=== PATIENT | female | born 1975 | race Caucasian/White ===

== ENCOUNTER 2021-03-10 15:46 | Emergency (ER) | payer MEDICAID ==
[~2021-03-10] VITALS: Ht 167 cm; Wt 74.0 kg
--- NOTE | 2021-03-10 16:36 | ED Abdominal Pain ---
General Chief Complaint: Abdominal/GI Problems Stated Complaint: ABD PAIN,NAUSEA Source of Information: Patient Exam Limitations: No Limitations History of Present Illness Date Seen by Provider: Mar 10, 2021 Time Seen by Provider: 16:20 Initial Comments Patient is a 45-year-old female who presents to the emergency department today with a chief complaint of right upper quadrant abdominal pain. Patient states that she has had colicky right upper quadrant abdominal pain off and on for the last 6 months. She has been seen by her primary care provider and had an ultrasound of her gallbladder. She is scheduled to have a HIDA scan on March 21. Patient states she has been taking some tramadol for pain. She states anything she eats or drinks causes pain in her right side and up into her shoulder and in her right flank. She denies any fevers, chills. She is chronically nauseated with the pain. She denies black or bloody stools, bloody urine. She denies diarrhea. No burning with urination or abnormal vaginal discharge. She is status post tubal ligation. All other review of systems reviewed and negative except as stated above. Timing/Duration: Constant, Getting Worse Severity/Quality: Cramping Location: RUQ Radiation: Shoulder Associated Symptoms: Nausea/Vomiting Allergies and Home Medications Allergies Coded Allergies: No Known Drug Allergies (Unverified , 03/10/21) Patient Home Medication List Home Medication List Reviewed: Yes Review of Systems Review of Systems Constitutional: see HPI EENTM: No Symptoms Reported Respiratory: No Symptoms Reported Cardiovascular: No Symptoms Reported Gastrointestinal: Abdominal Pain, Nausea, Vomiting Genitourinary: No Symptoms Reported Musculoskeletal: no symptoms reported Skin: no symptoms reported All Other Systems Reviewed Negative Unless Noted: Yes Past Svxtklv-Gndfvr-Qhyulv Hx Patient Social History Alcohol Use: Rarely Uses Smoking Status: Never a Smoker 2nd Hand Smoke Exposure: No Recent Hopitalizations: No Seasonal Allergies Seasonal Allergies: No Past Medical History Surgeries: Yes (HERNIA REPAIR) Appendectomy, Section, Tubal Ligation Respiratory: No Cardiac: No Neurological: No Genitourinary: No Gastrointestinal: No Musculoskeletal: No Endocrine: No HEENT: No Cancer: No Psychosocial: No Integumentary: No Blood Disorders: No Adverse Reaction/Blood Tranf: No Physical Exam Vital Signs Vital Signs - First Documented 03/10/21 16:20 Temp 37.6 Pulse 73 Resp 16 B/P (MAP) 153/93 (113) Pulse Ox 100 O2 Delivery Room Air Capillary Refill : Height/Weight/BMI Height: '" Weight: lbs. oz. kg; BMI Method: General Appearance: WD/WN, no apparent distress HEENT: PERRL/EOMI Respiratory: lungs clear, normal breath sounds, no respiratory distress, no accessory muscle use Cardiovascular: regular rate, rhythm Gastrointestinal: normal bowel sounds, soft, tenderness (Mild tenderness in the right upper quadrant without Gomez sign) Back: normal inspection, CVA tenderness (R) (Mild right-sided CVA tenderness) Neurologic/Psychiatric: alert, normal mood/affect, oriented x 3 Skin: normal color, warm/dry Progress/Results/Core Measures Results/Orders Lab Results Laboratory Tests Test 03/10/21 16:32 03/10/21 16:58 Range/Units White Blood Count 7.7 4.3-11.0 10^3/uL Red Blood Count 4.39 3.80-5.11 10^6/uL Hemoglobin 13.4 11.5-16.0 g/dL Hematocrit 40 35-52 % Mean Corpuscular Volume 91 80-99 fL Mean Corpuscular Hemoglobin 31 25-34 pg Mean Corpuscular Hemoglobin Concent 34 32-36 g/dL Red Cell Distribution Width 12.6 10.0-14.5 % Platelet Count 225 130-400 10^3/uL Mean Platelet Volume 10.4 9.0-12.2 fL Immature Granulocyte % (Auto) 0 % Neutrophils (%) (Auto) 63 42-75 % Lymphocytes (%) (Auto) 27 12-44 % Monocytes (%) (Auto) 8 0-12 % Eosinophils (%) (Auto) 1 0-10 % Basophils (%) (Auto) 0 0-10 % Neutrophils # (Auto) 4.8 1.8-7.8 10^3/uL Lymphocytes # (Auto) 2.1 1.0-4.0 10^3/uL Monocytes # (Auto) 0.6 0.0-1.0 10^3/uL Eosinophils # (Auto) 0.1 0.0-0.3 10^3/uL Basophils # (Auto) 0.0 0.0-0.1 10^3/uL Immature Granulocyte # (Auto) 0.0 0.0-0.1 10^3/uL Sodium Level 141 135-145 MMOL/L Potassium Level 3.8 3.6-5.0 MMOL/L Chloride Level 107 98-107 MMOL/L Carbon Dioxide Level 25 21-32 MMOL/L Anion Gap 9 5-14 MMOL/L Blood Urea Nitrogen 10 7-18 MG/DL Creatinine 0.81 0.60-1.30 MG/DL Estimat Glomerular Filtration Rate > 60 BUN/Creatinine Ratio 12 Glucose Level 91 70-105 MG/DL Calcium Level 9.4 8.5-10.1 MG/DL Corrected Calcium 9.1 8.5-10.1 MG/DL Total Bilirubin 0.9 0.1-1.0 MG/DL Aspartate Amino Transf (AST/SGOT) 16 5-34 U/L Alanine Aminotransferase (ALT/SGPT) 18 0-55 U/L Alkaline Phosphatase 60 40-136 U/L Total Protein 7.6 6.4-8.2 GM/DL Albumin 4.4 3.2-4.5 GM/DL Lipase 20 8-78 U/L Serum Test, Qualitative NEGATIVE NEGATIVE Urine Color DARK YELLOW Urine Clarity CLEAR Urine pH 5.5 5-9 Urine Specific [place] >=1.030 1.016-1.022 Urine Protein NEGATIVE NEGATIVE Urine Glucose (UA) NEGATIVE NEGATIVE Urine Ketones NEGATIVE NEGATIVE Urine Nitrite NEGATIVE NEGATIVE Urine Bilirubin NEGATIVE NEGATIVE Urine Urobilinogen 1.0 < = 1.0 MG/DL Urine Leukocyte Esterase NEGATIVE NEGATIVE Urine RBC (Auto) NEGATIVE NEGATIVE Urine RBC NONE /HPF Urine WBC NONE /HPF Urine Crystals PRESENT H /LPF Urine Amorphous Sediment FEW PUMA URATES H /LPF Urine Bacteria NEGATIVE /HPF Urine Casts NONE /LPF Urine Mucus SMALL H /LPF Urine Culture Indicated NO My Orders Orders - REBEKA VALENTE MD Ed Iv/Invasive Line Start (03/10/21 16:32) Cbc With Automated Diff (03/10/21 16:32) Comprehensive Metabolic Panel (03/10/21 16:32) Lipase (03/10/21 16:32) Hcg,Qualitative Serum (03/10/21 16:32) Ua Culture If Indicated (03/10/21 16:36) Dicyclomine Injection (Bentyl Injection) (03/10/21 16:37) Ondansetron Injection (Zofran Injectio (03/10/21 16:45) Medications Given in ED Current Medications Medications Dose Ordered Sig/Dario Route Start Time Stop Time Status Last Admin Dose Admin Ondansetron HCl 8 mg ONCE ONCE IVP 03/10/21 16:45 03/10/21 16:46 DC 03/10/21 16:45 8 MG Vital Signs/I&O 03/10/21 16:20 Temp 37.6 Pulse 73 Resp 16 B/P (MAP) 153/93 (113) Pulse Ox 100 O2 Delivery Room Air Progress Progress Note : Time: 17:30 Progress Note Patient seen and examined 45-year-old female presents with right upper quadrant and epigastric abdominal pain onset randomly and with food. Evaluation today includes a physical exam, CBC, Chem-12 with lipase, urinalysis and serum test. Patient's laboratory studies are all reviewed and unremarkable. On physical examination the patient has a negative Gomez sign. She has no signs of acute abdomen. After Bentyl and Zofran she states her nausea is much improved and her abdominal pain may be mildly improved. I have discussed pain management with the patient and we will send her home with a few hydrocodone as well as Bentyl and Zofran. She is advised to follow-up with a general surgeon regarding her right upper quadrant abdominal pain. She is also given good return precautions. She verbalized understanding. All questions are sought and answered. Patient is stable for discharge. Departure Impression Primary Impression: Abdominal pain Qualified Codes: R10.11 - Right upper quadrant pain Additional Impression: Biliary colic Disposition: 01 HOME, SELF-CARE Condition: Stable Departure-Patient Inst. Decision time for Depature: 17:29 Referrals: ALTHEA NEAL AMANDA S APRN (PCP) Primary Care Physician Patient Instructions: Abdominal Pain, Adult ED Add. Discharge Instructions: Try and follow a bland diet over the course of the next 10 days. Call and see if you can get your HIDA scan moved up to a sooner date. Take the Bentyl 30 minutes before meals and at bedtime to help with gallbladder spasms and pain. Hydrocodone 5 mg 1 every 6 hours as needed for severe pain. Zofran every 8 hours as needed for nausea and vomiting. Return to the emergency room for any use worsening pain especially with fever vomiting or other emergent concerning symptoms. Scripts Hydrocodone/Acetaminophen (Hydrocodone-Acetamin 5-325 mg) 1 Each Tablet 1 TAB PO Q6H PRN for PAIN-MODERATE (5-7), #15 TAB Prov: REBEKA VALENTE MD 03/10/21 Dicyclomine HCl (Dicyclomine HCl) 20 Mg Tablet 20 MG PO Q6H for abdominal pain, #60 TAB Prov: REBEKA VALENTE MD 03/10/21 Ondansetron (Ondansetron Odt) 8 Mg Tab.rapdis 8 MG PO Q8H for nausea, #20 TAB Prov: REBEKA VALENTE MD 03/10/21 REBEKA VALENTE MD Mar 10, 2021 16:35
[2021-03-10] MEDS ORDERED: DICYCLOMINE 10 MG/ML (BENTYL) 2 ML AMP IM STA (16:37)
[2021-03-10 16:41] LABS: BASOPHILS % (AUTO) 0 % (0-10); EOSINOPHILS # (AUTO) 0.1 10^3/uL (0.0-0.3); EOSINOPHILS % (AUTO) 1 % (0-10); HEMATOCRIT 40 % (35-52); HEMOGLOBIN 13.4 g/dL (11.5-16.0); LYMPHOCYTES # (AUTO) 2.1 10^3/uL (1.0-4.0); LYMPHOCYTES % (AUTO) 27 % (12-44); MEAN CORPUSCULAR HEMOGLOBIN 31 pg (25-34); MEAN CORPUSCULAR HGB CONC 34 g/dL (32-36); MEAN CORPUSCULAR VOLUME 91 fL (80-99); MEAN PLATELET VOLUME 10.4 fL (9.0-12.2); MONOCYTES # (AUTO) 0.6 10^3/uL (0.0-1.0); MONOCYTES % (AUTO) 8 % (0-12); NEUTROPHILS # (AUTO) 4.8 10^3/uL (1.8-7.8); NEUTROPHILS % (AUTO) 63 % (42-75); PLATELET COUNT 225 10^3/uL (130-400); WHITE BLOOD COUNT 7.7 10^3/uL (4.3-11.0)
[2021-03-10] MEDS ORDERED: ONDANSETRON 4 MG/2 ML (SDV) Z0FRAN IVP ONE (16:45)
[2021-03-10 16:47] LABS: ALBUMIN 4.4 GM/DL (3.2-4.5); CHLORIDE 107 MMOL/L (98-107); POTASSIUM 3.8 MMOL/L (3.6-5.0); SODIUM 141 MMOL/L (135-145)
[2021-03-10 16:48] LABS: CALCIUM 9.4 MG/DL (8.5-10.1)
[2021-03-10 16:49] LABS: GLUCOSE 91 MG/DL (70-105)
[2021-03-10 16:50] LABS: TOTAL PROTEIN 7.6 GM/DL (6.4-8.2)
[2021-03-10 16:51] LABS: BILIRUBIN,TOTAL 0.9 MG/DL (0.1-1.0); CARBON DIOXIDE 25 MMOL/L (21-32)
[2021-03-10 16:53] LABS: ALKALINE PHOSPHATASE 60 U/L (40-136); CREATININE SERUM 0.81 MG/DL (0.60-1.30); GFR ESTIMATED > 60
[2021-03-10 16:54] LABS: BUN/CREATININE RATIO 12
[2021-03-10 16:56] LABS: ALANINE AMINOTRANSFERASE 18 U/L (0-55); LIPASE 20 U/L (8-78)
[2021-03-10 17:03] LABS: BILIRUBIN,URINE NEGATIVE (NEGATIVE); CLARITY,URINE CLEAR; COLOR,URINE DARK YELLOW; GLUCOSE, URINE (UA) NEGATIVE (NEGATIVE); KETONES,URINE NEGATIVE (NEGATIVE); LEUKOCYTE ESTERASE ,URINE NEGATIVE (NEGATIVE); NITRITE,URINE NEGATIVE (NEGATIVE); PH,URINE 5.5 (5-9); PROTEIN,URINE NEGATIVE (NEGATIVE)
[2021-03-10 17:13] LABS: BACTERIA,URINE NEGATIVE /HPF
[2021-03-10 17:14] LABS: AMORPHOUS SEDIMENT,UR FEW AMOR URATES /LPF
[2021-03-10] MEDS ORDERED: ONDA8TAB13 PO (17:33)
[2021-03-10] MEDS ORDERED: DICY20TA10 PO (17:33)
[2021-03-10] MEDS ORDERED: ACHD5005 PO (17:33)
[2021-03-10 17:43] VITALS: BP 126/79
== END 2021-03-10 17:43 | disposition home or self-care (01) ==
LOC: EDUNIT# 15:46 → ER 15:48
DX: K80.50 Calculus of bile duct without cholangitis or cholecystitis without obstruction (principal)
CPT/HCPCS: 36415; 80053; 81000; 83690; 84703; 85025

== ENCOUNTER → 2021-03-13 | Outpatient (CLI) | payer MEDICAID ==
[~2021-03-13] MED LIST: ACHD5005 PO; CATHETER FLUSH 10 ML SYR IV PRN; DICY20TA10 PO; ONDA8TAB13 PO
--- NOTE | 2021-03-13 11:08 | Diagnostic Imaging Report ---
Nuclear medicine scan INDICATION: Right upper quadrant pain The study was performed following administration of 5.32 mCi of Choletec. 8 oz of ensure was also used for calculation of ejection fraction. There are no prior studies available for comparison. There is uptake of the radiotracer about the gallbladder before 30 minutes. This weighs against the diagnosis of acute cholecystitis. There is also extension of the radiotracer into the small bowel indicating that the common bile duct is nonobstructive. The ejection fraction is 50% (normal greater than 35%). IMPRESSION: 1. There is no evidence for acute cholecystitis or for obstruction of the common bile duct. 2. The ejection fraction is 50% and within normal limits. Dictated by: Dictated on workstation # [id number]
== END ==
LOC: CARD 08:00
PROVIDERS: ATTEND Nurse Practitioner Family
DX: R10.11 Right upper quadrant pain (principal)
CPT/HCPCS: 78227

== ENCOUNTER 2021-04-14 05:51 | Outpatient (CLI) | payer MEDICAID ==
[~2021-04-14] VITALS: Ht 167.6 cm; Wt 64.6 kg
[~2021-04-14 05:51] MED LIST changes: -CATHETER FLUSH 10 ML SYR IV PRN
[2021-04-16] MEDS ORDERED: TRAM50TA3 PO (09:10)
[2021-04-16] MEDS ORDERED: BUDE10.2 IH (09:10)
[2021-04-16] MEDS ORDERED: MELO15TA39 PO (09:10)
== END 2021-04-16 09:26 | disposition home or self-care (01) ==
LOC: PREOP 05:51
PROVIDERS: ATTEND Surgery
DX: Z01.818 Encounter for other preprocedural examination (principal)

== ENCOUNTER → 2021-04-18 | Outpatient (CLI) | payer MEDICAID ==
[~2021-04-18] MED LIST changes: +BUDE10.2 IH; +MELO15TA39 PO; +TRAM50TA3 PO
== END ==
LOC: LAB FS 11:31
PROVIDERS: ATTEND Surgery
DX: Z01.812 Encounter for preprocedural laboratory examination (principal); Z12.11 Encounter for screening for malignant neoplasm of colon; Z20.822 Contact with and (suspected) exposure to COVID-19; Z85.43 Personal history of malignant neoplasm of ovary
CPT/HCPCS: 87635

== ENCOUNTER 2021-04-21 10:46 | Day surgery (SDC) | payer MEDICAID ==
[~2021-04-21] VITALS: Ht 167.6 cm; Wt 64.6 kg
[2021-04-21] MEDS ORDERED: LACTATED RINGERS 1,000 ML IV ONE (10:51)
[2021-04-21] MEDS ORDERED: LACTATED RINGERS 1,000 ML IV STA (10:53)
[2021-04-21] MEDS ORDERED: HURRICAINE EXT TUBE (BENZOCAINE) XX PRN (11:00)
[2021-04-21] MEDS ORDERED: fentaNYL INJ 100 MCG/2 ML AMP ONE (11:01)
--- NOTE | 2021-04-21 11:20 | Progress Note-Pre Operative ---
Pre-Operative Progress Note H&P Reviewed The H&P was reviewed, patient examined and no changes noted. Time Seen by Provider: 11:19 Date H&P Reviewed: Apr 21, 2021 Time H&P Reviewed: 11: Pre-Operative Diagnosis: Gastritis, Hx of polyp ALTHEA NEAL DO Apr 21, 2021 11:20
[2021-04-21 11:35] VITALS: BP 150/97
[2021-04-21] MEDS ORDERED: PROPOFOL INJECTION 50 ML IV ONE ×2 (12:03→12:47)
[2021-04-21] MEDS ORDERED: MIDAZOLAM 2 MG/2 ML (VERSED) VIAL ONE (12:03)
[2021-04-21 13:08] VITALS: BP 117/56
--- NOTE | 2021-04-21 13:11 | Progress Note-Post Operative ---
Post-Operative Progess Note Surgeon (s)/Tetryl Screen Operator (s) Surgeon ALTHEA NEAL DO Tetryl Screen Operator: Aneudy Sears, CHRISTOS Pre-Operative Diagnosis Gastritis, Hx of polyp Post-Operative Diagnosis Gastritis Hiatal hernia polyp int hemorrhoids Procedure & Operative Findings Date of Procedure 04/21/21 Procedure Performed/Findings EGD with bx Colon with cold bx PROCEDURE NOTE: After informed consent was obtained, the patient was brought to the endoscopy suite, placed in bed in left lateral decubitus position. She was administered IV sedation by the FINAL FINISHER who then monitored vitals the entire time, heart rate, blood pressure and pulse ox and the scope was inserted down the mouth through the esophagus into the stomach. Pushed into the stomach and past the antrum into the duodenum. Duodenum looked mildly inflamed. Pulled back, saw mild gastritis and did a biopsy of antrum, then retroflexed the scope, saw a hiatal hernia, took a picture of this and then pulled the scope into the GE junction, took another picture of the hiatal hernia and then did a biopsy of the GE junction. GE junction appeared normal; no changes from acid reflux. Pushed the scope back into the stomach, suctioned all the air out of the stomach. At this point pulled the scope up the esophagus and out the mouth. Next changed gloves and scopes, went down below and started the colonoscopy. The scope was inserted, pushed all the way to about 150 cm and pushed into the cecum, noted around the appendiceal orifice looked enlarged and decided to do a cold biopsy here and then slowly withdrew the scope insufflating to look circumferentiallly at the saxena starting in the cecum, up the ascending colon to the hepatic flexure, then down the transverse colon to the splenic flexure. Into the descending colon where I saw a small flat polyp and did another cold biosy. Continued down to the sigmoid and then into the rectal vault and retroflexed he scope. Took picture of the internal hemorrhoids. The patient tolerated the procedure. She was recovered in endoscopy suite. Anesthesia Type IV sedation by FINAL FINISHER Estimated Blood Loss Estimated blood loss (mL): scant Specimens/Packing Specimens Removed antral bx body of stomach bx GE jxn bx appy bx desc colon bx ALTHEA NEAL DO Apr 21, 2021 13:11
--- NOTE | 2021-04-21 13:12 | Endoscopy Discharge Instruct ---
Endo Procedure/Findings Findings 1.: Gastritis 2.: Hiatal Hernia 3.: Polyp 4.: Internal Hemorrhoids Discharge Instructions - Activity: You might feel a little sleepy until tomorrow. This is due to the medicine you received to relax you. Until tomorrow, you should: NOT drive a car, operate machinery or power tools. NOT drink any alcoholic beverages. NOT make any important decisions or sign importortant papers. Do not return to work until tomorrow, unless otherwise instructed. Resume previous activities tomorrow. Diet: Start by taking liquids. If you tolerate liquids, advance to solid food. 1.: Colonscopy in 5 years 2.: EGD in 3 years Notify Physician - If you experience excessive bleeding, unusual abdominal pain, fever, or chest pain, contact your doctor immediately. ALTHEA NEAL DO Apr 21, 2021 13:12
[2021-04-21 13:13] VITALS: BP 112/64
[2021-04-21 13:15] VITALS: BP 120/70
--- NOTE | 2021-04-21 13:20 | Anesthesia-General Post-Op ---
MAC Patient Condition Mental Status/LOC: Same as Preop Cardiovascular: Satisfactory Nausea/Vomiting: Absent Respiratory: Satisfactory Pain: Controlled Complications: Absent Post Op Complications Complications None Follow Up Care/Instructions Patient Instructions None needed. Anesthesiology Discharge Order Discharge Order Patient is doing well, no complaints, stable vital signs, no apparent adverse anesthesia problems. No complications reported per nursing. JACK BROTHERS CRNA Apr 21, 2021 13:20
[2021-04-21 13:45] VITALS: BP 127/79
[2021-04-21 14:10] VITALS: BP 127/79
== END 2021-04-21 14:10 | disposition home or self-care (01) ==
LOC: ENDO 10:46
PROVIDERS: ATTEND Surgery
DX: K63.5 Polyp of colon (principal); K52.9 Noninfective gastroenteritis and colitis, unspecified; K44.9 Diaphragmatic hernia without obstruction or gangrene; K64.8 Other hemorrhoids; K29.50 Unspecified chronic gastritis without bleeding; K20.90 Esophagitis, unspecified without bleeding
CPT/HCPCS: 88305

== ENCOUNTER 2021-04-29 05:43 | Outpatient (CLI) | payer MEDICAID ==
[~2021-04-29] VITALS: Ht 167.7 cm; Wt 63.2 kg
== END 2021-04-29 12:54 | disposition home or self-care (01) ==
LOC: PREOP 05:43
PROVIDERS: ATTEND Obstetrics & Gynecology
DX: Z01.818 Encounter for other preprocedural examination (principal)

== ENCOUNTER 2021-05-06 08:13 | Day surgery (SDC) | payer MEDICAID ==
[2021-05-06] VITALS (10 sets, daily range): BP systolic 98–155; BP diastolic 65–94
[~2021-05-06] VITALS: Ht 167 cm; Wt 63.2 kg
--- NOTE | 2021-05-06 08:26 | Progress Note-Pre Operative ---
Pre-Operative Progress Note H&P Reviewed The H&P was reviewed, patient examined and no changes noted. Date Seen by Provider: May 06, 2021 Time Seen by Provider: 08:25 Date H&P Reviewed: May 05, 2021 Time H&P Reviewed: 21:00 Pre-Operative Diagnosis: uterine fibroid, menorrhagia, dysmenorrhea, endometriosis, etc MIKAYLA DEL TORO DO May 06, 2021 08:26
[2021-05-06] MEDS ORDERED: LIDOCAINE/EPI 1%-1:100,000 (XYLOCAINE) 20ML ONE ×2 (08:29→08:57)
[2021-05-06 08:30] LABS: BILIRUBIN,URINE NEGATIVE (NEGATIVE); CLARITY,URINE CLEAR; COLOR,URINE DARK YELLOW; GLUCOSE, URINE (UA) NEGATIVE (NEGATIVE); KETONES,URINE 1+ (NEGATIVE); LEUKOCYTE ESTERASE ,URINE NEGATIVE (NEGATIVE); NITRITE,URINE NEGATIVE (NEGATIVE); PROTEIN,URINE NEGATIVE (NEGATIVE)
[2021-05-06] MEDS ORDERED: ROCURONIUM 10 MG/ML 5 ML SYRINGE IV ONE ×2 (08:30→11:49)
[2021-05-06] MEDS ORDERED: GLYCOPYRROLATE 0.2 MG/ML (ROBINUL) 2 ML VIAL ONE (08:30)
[2021-05-06] MEDS ORDERED: fentaNYL INJ 100 MCG/2 ML AMP ONE ×2 (08:30→12:50)
[2021-05-06] MEDS ORDERED: LIDOCAINE PF 2% 5 ML (XYLOCAINE) VIAL ONE (08:30)
[2021-05-06] MEDS ORDERED: NEOSTIGMINE 3 MG/3 ML VIAL ONE (08:30)
[2021-05-06] MEDS ORDERED: proPOfol 200 MG/20 ML (DIPRIVAN) VIAL IV ONE (08:30)
[2021-05-06] MEDS ORDERED: MIDAZOLAM 2 MG/2 ML (VERSED) VIAL ONE (08:30)
[2021-05-06] MEDS ORDERED: ONDANSETRON 4 MG/2 ML (SDV) Z0FRAN ONE (08:30)
[2021-05-06 08:38] LABS: BACTERIA,URINE NEGATIVE /HPF
[2021-05-06] MEDS: LACTATED RINGERS 1,000 ML IV PRN ×3 (09:00→13:19)
[2021-05-06] MEDS ORDERED: ceFAZolin 2 GM IV Premixed 50 ML ONE (09:07)
[2021-05-06 09:28] LABS: BASOPHILS % (AUTO) 0 % (0-10); EOSINOPHILS # (AUTO) 0.1 10^3/uL (0.0-0.3); EOSINOPHILS % (AUTO) 2 % (0-10); HEMATOCRIT 38 % (35-52); HEMOGLOBIN 12.5 g/dL (11.5-16.0); LYMPHOCYTES # (AUTO) 1.2 10^3/uL (1.0-4.0); LYMPHOCYTES % (AUTO) 23 % (12-44); MEAN CORPUSCULAR HEMOGLOBIN 30 pg (25-34); MEAN CORPUSCULAR HGB CONC 33 g/dL (32-36); MEAN CORPUSCULAR VOLUME 92 fL (80-99); MEAN PLATELET VOLUME 10.3 fL (9.0-12.2); MONOCYTES # (AUTO) 0.4 10^3/uL (0.0-1.0); MONOCYTES % (AUTO) 7 % (0-12); NEUTROPHILS # (AUTO) 3.5 10^3/uL (1.8-7.8); NEUTROPHILS % (AUTO) 68 % (42-75); PLATELET COUNT 215 10^3/uL (130-400); WHITE BLOOD COUNT 5.2 10^3/uL (4.3-11.0)
[2021-05-06] MEDS ORDERED: ceFAZolin 2 GM IV Premixed 50 ML IV ONE (10:15)
[2021-05-06] MEDS ORDERED: SEVOFLURANE (ULTANE) 15 ML INHAL SOLN ONE ×2 (10:32→12:54)
[2021-05-06] MEDS ORDERED: INDIGO CARMINE 8 MG/ML 5 ML AMP ONE (11:23)
[2021-05-06] MEDS ORDERED: FUROSEMIDE 40 MG/4 ML INJ (LASIX) ONE (11:23)
[2021-05-06] MEDS ORDERED: VASOPRESSIN INJECTION 20 UNIT/ML VIAL ONE (11:40)
[2021-05-06] MEDS ORDERED: NS (IVPB) 100 ML ONE (11:40)
[2021-05-06] MEDS ORDERED: METHYLENE BLUE 0.5% (PROVAYBLUE) 50 mg/10 ml vial IV ONE (12:04)
--- NOTE | 2021-05-06 12:49 | Operative Report ---
Operative Report Date of Procedure/Surgery May 06, 2021 Surgeon (s) MIKAYLA DEL TORO DO Spray Machine Tender (s): NA Post-Operative Diagnosis endometriosis extensive adhesions vesicouterine adhesions bladder incidental laceration adenomyosis cervical nabothian cysts and fibroids Procedure Performed RATVH , BSO Extensive lysis of adhesions repair of cystomy Description of Procedure Anesthesia Type: General Estimated blood loss (mL): 300 Specimen(s) collected/removed uterus, bilateral tubes and ovaries Description of the Procedure After informed consent was obtained, patient was taken into the operating room where general anesthetic was found to be adequate. She was prepped and draped in the usual sterile fashion in the dorsal lithotomy position. A Og catheter was placed. A speculum was placed in the vagina. The cervix was visualized and the anterior lip was grasped with a sharp toothed tenaculum. The uterus was sounded and depth was approximately 8 centimeters. I placed the Inge device (8 cm) and a 4.0 cm collar was advanced over the cervix. This was difficult due to the large nabothian cysts and possible fibroid on the cervix. I inserted the Inge without difficulty, inflating the balloon and securing it around the fornix of the cervix. The collar was then secured with sutures at 12 o'clock. Attention was then turned to the patient's abdomen. A supraumbilical incision was made about 8 mm. A Veress needle was inserted and I confirmed intraabdominal placement with a drop in pressure and the saline drop test. The opening pressure was 8 mmHg. I then insufflated the abdomen to a maximum of 15 mmHg with warmed CO2 gas. I placed an additional 8 mm trocar in the left abdo men lateral to the umbilicus approximately 15 cm. The second robotic port was placed about 12 cm lateral to the right placement. This was an 8 mm trocar. These were placed under direct visualization of the laparoscope. 0.50% Marcaine was injected prior to placement of all trocars. When all placements were confirmed, the patient was placed in steep Trendelenburg allowing adequate visualization. The uterus was retroflexed, retroflexed, but stuck anteriorly due to extensive vesicouterine adhesions. The bladder was noted to be very scarred to the lower uterine segment and it was advanced nearly up to the fundus. It was very irregular. There were adhesions of the ovaries to the ovarian fossae bilaterally. The right was completely plastered and the left was moderately adherent. There were also adhesions of the small bowel and omentum to the right pelvic sidewall. The bowel was not adherent, but was pulled up to a kinked position with the adhesions. I then took over the command of the robot utilizing the Synchroseal and monopolar chacha. I took down the adhesions of the ovaries to the uterus but was unable to dissect this out cleanly without excessive bleeding. The ovaries were unable to be salvaged. I determined that, due to endometriosis and adh esions of the ovaries that the ovaries would need to be removed. I grasped the infundibulopelvic ligament with the synchroseal and cauterized and ligated the ligament. I did this bilaterally. Then, I was able to visualize the round ligaments bilaterally and grasped them and cauterized with bipolar cautery and then cut with my chacha. I then moved my dissection to the posterior leaves of the broad ligament. I dissected the posterior leaves of the broad ligament off the uterine arteries skeletonizing them bilaterally. I then took a second clamp with the bipolar cautery and with the chacha, transected the vessels away from the lateral aspect to the cervical stroma. I dissected the anterior peritoneum off the lower uterine segment. I continually pushed the bladder back and I took excessively great care and I was eventually able to dissect the vesicouterine peritoneum off the lower uterine segment. However, there was a defect of the bladder in the midline due to these extensive adhesions. This was repaired prior to the end of the procedure. I then dissected in a V fashion towards the midline between the uterosacral ligaments. This allowed me to skeletonize the uterine vessels bilaterally. The balloon on the INGE was insufflated. This allowed me to see the INGE circumferentially. I then performed a colpotomy anteriorly and then amputate with cervix away from the vaginal fornix. I then continued the colpotomy circumferentially. Once this was performed, the pharmacy innovation assistant removed the uterus, tubes and ovaries through the vagina. She then left the uterus in the vagina to maintain the pneumoperitoneum. I now repaired the bladder laceration with two layers of 3-0 Vicryl. I back filled the bladder with indigo carmine fluid and the patient was also given indigo carmine. There was initially a tiny leak at the apex, which is why the second layer was placed. The Og will be left in place for 7 days following the surgery with a cystogram done prior to removal. I then began closure of the vaginal cuff. The uterus was left in the vagina to maintain pneumoperitoneum. I closed the apices of the vaginal cuff with 2-0 Vicryl V lock sutures with a colposuspension through the uterosacral ligaments. This suspended the apices of the vaginal cuff. I extended this to the midline from both sides and overlapped the V lock sutures in the midline. Excellent closure is noted and hemostasis is achieved. I assured excellent closure of the bladder again with backfilling and then the og was attached to dependent drainage. All the needles were removed from the patient's abdomen. Now, the robotic instruments were removed and the robot was docked back to laparoscopy. The pelvis was irrigated. There was no active bleeding noted. Bilateral ureters were seen the entire time during the surgery and were peristalsing. There was no excessive bleeding noted. The trocars were removed under direct visualization. The laparoscopic sites were visualized and found to be hemostatic. The trocar sites were injected with 0.5% Marcaine. The skin incisions were closed with 4-0 Monocryl in a subcuticular fashion and then with Dermabond. Op sites were placed over the incision sites. The instruments were removed from the vagina and I noted there were some abrasions but these were hemostatic after placement of a figure of 8 stitch. . Sponge, lap, needle and instrument counts correct times two. Patient was awakened and taken to recovery in a stable condition. Findings of the Procedure cervix very bulbous bulbous uterus retroverted, retroflexed fibroids evidence of tubal interruption adhesions of the right abdomen consistent with previous ruptured appendix ovaries scarred to ovarian fossae bilaterally Allergies and Home Medications Allergies Coded Allergies: No Known Drug Allergies (Unverified , 05/06/21) Home Medications Acetaminophen 500 Mg Tablet, 1,000 MG PO Q8HR Prescribed by: MIKAYLA DEL TORO on 05/07/21837 Budesonide/Formoterol Fumarate 10.2 Gm Hfa.aer.ad, 2 PUFF IH BID, (Reported) Last Action: Last Taken Edited Ciprofloxacin HCl 250 Mg Tablet, 250 MG PO DAILY Prescribed by: MIKAYLA DEL TORO on 05/07/21837 Ibuprofen 600 Mg Tablet, 600 MG PO Q6HR do not take meloxicam and ibuprofen together. either or Prescribed by: MIKAYLA DEL TORO on 05/07/21 0838 Meloxicam 15 Mg Tablet, 15 MG PO DAILY, (Reported) Last Action: Last Taken Edited Ondansetron 8 Mg Tab.rapdis, 8 MG PO Q8H Prescribed by: REBEKA VALENTE on 03/10/21 1733 Last Action: Last Taken Edited Oxybutynin Chloride 5 Mg Tablet, 5 MG PO DAILY Prescribed by: MIKAYLA DEL TORO on 05/07/21 0838 Oxycodone Hcl 5 Mg Tab, 5 MG PO Q4H Prescribed by: MIKAYLA DEL TORO on 05/07/21 0842 Oxycodone Hcl 5 Mg Tab, 5 MG PO Q4HR Prescribed by: MIKAYLA DEL TORO on 05/07/21 0936 Tramadol HCl 50 Mg Tablet, 50 MG PO PRN, (Reported) Last Action: Last Taken Edited Patient Home Medication List Home Medication List Reviewed: Yes MIKAYLA DEL TORO DO May 06, 2021 12:49
--- NOTE | 2021-05-06 13:12 | Anesthesia-General Post-Op ---
General Patient Condition Mental Status/LOC: Same as Preop Cardiovascular: Satisfactory Nausea/Vomiting: Absent Respiratory: Satisfactory Pain: Controlled Complications: Absent Post Op Complications Complications None Follow Up Care/Instructions Patient Instructions None needed. Anesthesia/Patient Condition Patient Condition Patient is doing well, no complaints, stable vital signs, no apparent adverse anesthesia problems. No complications reported per nursing. JEFFREY REYES CRNA May 06, 2021 13:12
[2021-05-06] MEDS ORDERED: morphine INJ 10 MG/ML 1ML (SYR OR VIAL) IVP ONE (13:15)
[2021-05-06] MEDS ORDERED: HYDROmorphone 2 MG/ML VIAL (DILAUDID) IV ONE (13:15)
[2021-05-06] MEDS ORDERED: PROMETHAZINE INJ 25 MG/ML (PHENERGAN) AMP IVP ONE (13:15)
[2021-05-06] MEDS ORDERED: MEPERIDINE (DEMEROL) INJ 50 MG/ML IVP ONE (13:15)
[2021-05-06] MEDS: ONDANSETRON 4 MG/2 ML (SDV) Z0FRAN IVP PRN ×2 (14:17→15:19)
[2021-05-06] MEDS ORDERED: morphine INJ 4 MG/ML 1 ML (VIAL/SYRINGE) IV PRN (14:45)
[2021-05-06] MEDS ORDERED: NALOXONE 0.4 MG/ML 1 ML (NARCAN) VIAL IV PRN (14:45)
[2021-05-06] MEDS ORDERED: ONDANSETRON 4 MG (ZOFRAN) ORAL DISSOLVE TAB PO PRN (14:45)
[2021-05-06] MEDS ORDERED: ACETAMINOPHEN 500 MG TAB (TYLENOL) ONE (19:52)
[2021-05-06] MEDS: ACETAMINOPHEN 500 MG TAB (TYLENOL) PO SCH (19:55)
[2021-05-06] MEDS: KETOROLAC 30 MG/ML VIAL IV SCH (19:55)
[2021-05-06] MEDS: LACTATED RINGERS 1,000 ML IV SCH ×2 (20:54→22:45)
[2021-05-07 00:34] VITALS: BP 123/66
[2021-05-07] MEDS: KETOROLAC 30 MG/ML VIAL IV SCH ×2 (03:14→08:58)
[2021-05-07 04:55] VITALS: BP 143/84
[2021-05-07] MEDS: LACTATED RINGERS 1,000 ML IV SCH (05:02)
[2021-05-07] MEDS: ACETAMINOPHEN 500 MG TAB (TYLENOL) PO SCH (05:02)
[2021-05-07 08:00] VITALS: BP 145/80
[2021-05-07] MEDS ORDERED: OXYB5TAB13 PO (08:38)
[2021-05-07] MEDS ORDERED: IBUP-844 PO (08:38)
[2021-05-07] MEDS ORDERED: ACET-93 PO (08:38)
[2021-05-07] MEDS ORDERED: CIPR-226 PO (08:38)
--- NOTE | 2021-05-07 08:41 | Discharge Inst-Women's Service ---
Discharge Inst-Women's Serv Depart Medication/Instructions New, Converted or Re-Newed RX: Transmitted to Pharmacy Instructions nothing in vagina for 8 weeks no lifting over 25 lbs until cleared no driving for 1 week Catheter care will continue x 1 week Final Diagnosis endometriosis chronic pelvic pain bladder adhesions with incidental cystotomy adenomyosis menorrhagia/abnormal uterine bleeding cervical polyp dysmenorrhea Problems Reviewed?: Yes Consults/Follow Up Additional Follow Up: Yes (1 week for incision check and catheter removal (best to do this in the morning0; 8 week pp exam) Activity Driving Instructions: No Driving for 1 Week NO SMOKING: NO SMOKING Nothing Inside Vagina: No Douching, No [place], No Tampons Diet Discharge Diet: No Restrictions Symptoms to Report to : Swelling Increased, Bleeding Excessive, Pain Increased, Fever Over 101 Degrees F, Vaginal Bleeding Increase, Vaginal Discharge Foul For Any Problems or Questions: Contact Your Physician Skin/Wound Care Infection Signs and Symptoms: Increased Redness, Foul Odor of Wound, Increased Drainage, Skin Itchy or Has a Rash, Increased Swelling, Temperature Above 101 F Operative Area Clean and Dry: You May Remove Bandage (in 2-3 days or if soiiled/wet) Stitches/[place]/Dermabond: Dermabond Bathing Instructions: MIKAYLA Sharma DO May 07, 2021 08:41
[2021-05-07] MEDS ORDERED: OXC5T PO ×2 (08:42→09:35)
[2021-05-07 09:09] VITALS: BP 105/65
[2021-05-07] MEDS ORDERED: IBUPROFEN 600 MG (MOTRIN) TAB PO SCH (18:00)
== END 2021-05-07 12:30 | disposition home or self-care (01) ==
LOC: SDC 08:13 → WS 14:18 → SDC 05-07 12:30
PROVIDERS: ATTEND Obstetrics & Gynecology
DX: N80.9 Endometriosis, unspecified (principal); D25.1 Intramural leiomyoma of uterus; K66.0 Peritoneal adhesions (postprocedural) (postinfection); S37.23XA Laceration of bladder, initial encounter; N80.0 Endometriosis of uterus; N88.8 Other specified noninflammatory disorders of cervix uteri; M79.7 Fibromyalgia; D25.9 Leiomyoma of uterus, unspecified; Z90.89 Acquired absence of other organs; F41.9 Anxiety disorder, unspecified; F32.9 Major depressive disorder, single episode, unspecified; F43.10 Post-traumatic stress disorder, unspecified; Z79.899 Other long term (current) drug therapy; J45.909 Unspecified asthma, uncomplicated; K21.9 Gastro-esophageal reflux disease without esophagitis; Z79.891 Long term (current) use of opiate analgesic; Z80.0 Family history of malignant neoplasm of digestive organs; Z80.3 Family history of malignant neoplasm of breast; E78.00 Pure hypercholesterolemia, unspecified; Z83.3 Family history of diabetes mellitus; Z82.49 Family history of ischemic heart disease and other diseases of the circulatory system
CPT/HCPCS: 36415; 81000; 84703; 85025; 86850; 86900; 86901; 88307; 94664

== ENCOUNTER 2021-11-11 09:49 | Emergency (ER) | payer MEDICAID ==
[~2021-11-11] VITALS: Ht 167.7 cm; Wt 62.1 kg
[~2021-11-11 09:49] MED LIST changes: +ACET-93 PO; +CIPR-226 PO; +DICY20TA PO; -DICY20TA10 PO; +IBUP-844 PO; +OXC5T PO; +OXYB5TAB13 PO
--- NOTE | 2021-11-11 10:00 | ED Cardiac General ---
History of Present Illness General Stated Complaint: SOB; ELEV HR History of Present Illness Date Seen by Provider: Nov 11, 2021 Time Seen by Provider: 09:56 Initial Comments 46-year-old female presents with complaints of rapid heart rate and shortness of breath. Patient reports that she has been dealing with this for a couple weeks. Patient has a history of asthma and reports that she has been being treated for asthma. Patient also reports that about 3 weeks ago she just got over Covid. Patient reports that her symptoms get worse with exertion. Patient denies chest pain. Patient is extremely anxious. Patient denies any cough, fevers or chills. Allergies and Home Medications Allergies Coded Allergies: No Known Drug Allergies (Unverified , 05/06/21) Patient Home Medication List Home Medication List Reviewed: Yes Acetaminophen (Acetaminophen) 500 Mg Tablet, 1,000 MG PO Q8HR Prescribed by: MIKAYLA DEL TORO on 05/07/21 0838 Budesonide/Formoterol Fumarate (Symbicort 160-4.5 Mcg Inhaler) 10.2 Gm Hfa.aer.ad, 2 PUFF IH BID, (Reported) Entered as Reported by: JANETH SHAH on 04/16/21 0910 Ciprofloxacin HCl (Cipro) 250 Mg Tablet, 250 MG PO DAILY Prescribed by: MIKAYLA DEL TORO on 05/07/21 0838 Ibuprofen (Ibu) 600 Mg Tablet, 600 MG PO Q6HR Prescribed by: MIKAYLA DEL TORO on 05/07/21 0838 Lisinopril (Lisinopril) 5 Mg Tablet, 5 MG PO DAILY Prescribed by: CORRINE DOYLE on 11/11/21 1154 Meloxicam (Meloxicam) 15 Mg Tablet, 15 MG PO DAILY, (Reported) Entered as Reported by: JANETH SHAH on 04/16/21 0910 Ondansetron (Ondansetron Odt) 8 Mg Tab.rapdis, 8 MG PO Q8H Prescribed by: REBEKA VALENTE on 03/10/21 1733 Oxybutynin Chloride (Oxybutynin Chloride) 5 Mg Tablet, 5 MG PO DAILY Prescribed by: MIKAYLA DEL TORO on 05/07/21 0838 Oxycodone Hcl (Oxyir Tablet) 5 Mg Tab, 5 MG PO Q4H Prescribed by: MIKAYLA DEL TORO on 05/07/21 0842 Oxycodone Hcl (Oxyir Tablet) 5 Mg Tab, 5 MG PO Q4HR Prescribed by: MIKAYLA DEL TORO on 05/07/21 0936 Tramadol HCl (Tramadol HCl) 50 Mg Tablet, 50 MG PO PRN, (Reported) Entered as Reported by: JANETH SHAH on 04/16/21 0910 Review of Systems Review of Systems Constitutional: No chills, No fever Respiratory: Denies Cough; Shortness of Air, SOA With Exertion Cardiovascular: Denies Chest Pain, Denies Irregular Heart Rate, Denies Lightheadedness; Palpitations Gastrointestinal: Denies Abdominal Pain, Denies Nausea, Denies Vomiting Musculoskeletal: no symptoms reported Skin: no symptoms reported Psychiatric/Neurological: No Symptoms Reported Endocrine: No Symptoms Reported Hematologic/Lymphatic: No Symptoms Reported Past Nftfezu-Rgscml-Dmlxeb Hx Seasonal Allergies Seasonal Allergies: No Past Medical History Surgeries: Yes (HERNIA REPAIR, C/S X6) Appendectomy, Section, Tonsillectomy, Tubal Ligation Respiratory: No Currently Using CPAP: No Currently Using BIPAP: No Cardiac: No Neurological: No Female Reproductive Disorders: Endometriosis [employer] History: Tubal Ligation Genitourinary: No Gastrointestinal: No Musculoskeletal: No Endocrine: No HEENT: No Cancer: No Psychosocial: No Integumentary: No Blood Disorders: No Adverse Reaction/Blood Tranf: No Family Medical History stomach cancer Colon cancer Physical Exam Vital Signs Vital Signs - First Documented 11/11/21 09:55 Temp 36.7 Pulse 106 Resp 17 B/P (MAP) 185/108 (133) O2 Delivery Room Air Capillary Refill : Height, Weight, BMI Height: '" Weight: lbs. oz. kg; 22.66 BMI Method: General Appearance: Anxious Neck: Non Tender, Supple Respiratory: Lungs Clear, Normal Breath Sounds Cardiovascular: Regular Rate, Rhythm, No Edema Gastrointestinal: Non Tender, Soft Extremity: Normal Capillary Refill, Normal Inspection, Normal Range of Motion Neurologic/Psychiatric: Alert, Oriented x3, No Motor/Sensory Deficits, furniture associate II- XII Norm as Tested Skin: Normal Color, Warm/Dry Progress/Results/Core Measures Results/Orders Lab Results Laboratory Tests Test 11/11/21 10:15 11/11/21 11:08 Range/Units White Blood Count 5.9 4.3-11.0 10^3/uL Red Blood Count 5.02 3.80-5.11 10^6/uL Hemoglobin 14.7 11.5-16.0 g/dL Hematocrit 44 35-52 % Mean Corpuscular Volume 87 80-99 fL Mean Corpuscular Hemoglobin 29 25-34 pg Mean Corpuscular Hemoglobin Concent 34 32-36 g/dL Red Cell Distribution Width 14.0 10.0-14.5 % Platelet Count 215 130-400 10^3/uL Mean Platelet Volume 10.6 9.0-12.2 fL Immature Granulocyte % (Auto) 0 % Neutrophils (%) (Auto) 70 42-75 % Lymphocytes (%) (Auto) 21 12-44 % Monocytes (%) (Auto) 7 0-12 % Eosinophils (%) (Auto) 1 0-10 % Basophils (%) (Auto) 0 0-10 % Neutrophils # (Auto) 4.2 1.8-7.8 10^3/uL Lymphocytes # (Auto) 1.3 1.0-4.0 10^3/uL Monocytes # (Auto) 0.4 0.0-1.0 10^3/uL Eosinophils # (Auto) 0.1 0.0-0.3 10^3/uL Basophils # (Auto) 0.0 0.0-0.1 10^3/uL Immature Granulocyte # (Auto) 0.0 0.0-0.1 10^3/uL D-Dimer 0.37 0.00-0.49 UG/ML Sodium Level 139 135-145 MMOL/L Potassium Level 4.0 3.6-5.0 MMOL/L Chloride Level 102 98-107 MMOL/L Carbon Dioxide Level 24 21-32 MMOL/L Anion Gap 13 5-14 MMOL/L Blood Urea Nitrogen 14 7-18 MG/DL Creatinine 0.80 0.60-1.30 MG/DL Estimat Glomerular Filtration Rate 92 BUN/Creatinine Ratio 18 Glucose Level 124 H 70-105 MG/DL Calcium Level 9.6 8.5-10.1 MG/DL Corrected Calcium 8.5-10.1 MG/DL Magnesium Level 1.7 1.6-2.4 MG/DL Total Bilirubin 0.8 0.1-1.0 MG/DL Aspartate Amino Transf (AST/SGOT) 21 5-34 U/L Alanine Aminotransferase (ALT/SGPT) 19 0-55 U/L Alkaline Phosphatase 66 40-136 U/L Troponin I < 0.30 <0.30 NG/ML C-Reactive Protein < 0.30 <0.50 MG/DL Pro-B-Type Natriuretic Peptide 19.3 <75.0 PG/ML Total Protein 7.8 6.4-8.2 GM/DL Albumin 4.8 H 3.2-4.5 GM/DL Urine Color YELLOW Urine Clarity CLEAR Urine pH 7.5 5-9 Urine Specific [place] 1.020 1.016-1.022 Urine Protein NEGATIVE NEGATIVE Urine Glucose (UA) NEGATIVE NEGATIVE Urine Ketones TRACE H NEGATIVE Urine Nitrite NEGATIVE NEGATIVE Urine Bilirubin NEGATIVE NEGATIVE Urine Urobilinogen 0.2 < = 1.0 MG/DL Urine Leukocyte Esterase NEGATIVE NEGATIVE Urine RBC (Auto) NEGATIVE NEGATIVE Urine RBC 2-5 H /HPF Urine WBC 0-2 /HPF Urine Squamous Epithelial Cells 2-5 /HPF Urine Crystals NONE /LPF Urine Bacteria NEGATIVE /HPF Urine Casts NONE /LPF Urine Mucus SMALL H /LPF Urine Culture Indicated NO Urine Opiates Screen NEGATIVE NEGATIVE Urine Oxycodone Screen NEGATIVE NEGATIVE Urine Methadone Screen NEGATIVE NEGATIVE Urine Propoxyphene Screen NEGATIVE NEGATIVE Urine Barbiturates Screen NEGATIVE NEGATIVE Ur Tricyclic Antidepressants Screen NEGATIVE NEGATIVE Urine Phencyclidine Screen NEGATIVE NEGATIVE Urine Amphetamines Screen NEGATIVE NEGATIVE Urine Methamphetamines Screen NEGATIVE NEGATIVE Urine Benzodiazepines Screen NEGATIVE NEGATIVE Urine Cocaine Screen NEGATIVE NEGATIVE Urine Cannabinoids Screen POSITIVE H NEGATIVE My Orders Orders - DOYLE,CORRINE L DO Cbc With Automated Diff (11/11/21 10:00) Comprehensive Metabolic Panel (11/11/21 10:00) Drug Screen Stat (Urine) (11/11/21 10:00) Magnesium (11/11/21 10:00) Thyroid Analyzer (11/11/21 10:00) Ua Culture If Indicated (11/11/21 10:00) Probnp Fs (11/11/21 10:00) Crp Fs (11/11/21 10:00) Troponin I Fs (11/11/21 10:00) Chest Pa/Lat (2 View) (11/11/21 10:00) Fibrin Degradation Products (11/11/21 10:00) Vital Signs/I&O 11/11/21 09:55 Temp 36.7 Pulse 106 Resp 17 B/P (MAP) 185/108 (133) O2 Delivery Room Air Progress Progress Note : Progress Note Patient's oxygen saturation remained 98-100 throughout her stay. Her heart rate dropped into the 70s. I do think there is by some underlying anxiety. Patient also reports that she had COVID recently and I suspect that this may be part of it is some underlying lung inflammation from Covid and addition to having a history of asthma. Discussed with her that often it takes couple weeks to months for people symptoms are completely resolve. I did recommend she follow- up with her primary care provider for further testing if it continues more than a couple more weeks. Patient should continue to use her inhalers as prescribed. Patient stable and discharged Departure Impression Primary Impression: Dyspnea on effort Additional Impression: Dyspnea due to COVID-19 Disposition: 01 HOME, SELF-CARE Condition: Stable Departure-Patient Inst. Referrals: LUPE FLANAGAN MD (PCP) Primary Care Physician Patient Instructions: High Blood Pressure ED Add. Discharge Instructions: Drink plenty of fluids, use your inhalers as prescribed Follow-up with your primary care provider if symptoms are not starting to improve over the next couple weeks. I recommend starting a light walking/exercise program If symptoms continue you may consider a pulmonology consult and pulmonary rehab program Follow-up with your primary care provider in 2 to 3 days for blood pressure recheck Scripts Lisinopril (Lisinopril) 5 Mg Tablet 5 MG PO DAILY, #14 TAB Prov: CORRINE DOYLE DO 11/11/21 CORRINE DOYLE DO Nov 11, 2021 10:00
--- NOTE | 2021-11-11 10:27 | Diagnostic Imaging Report ---
CLINICAL INDICATION: Patient with shortness of breath. EXAM: Chest x-ray, PA and lateral views. COMPARISON: None. FINDINGS: Lungs/pleura: Lungs are clear. There is no pneumothorax. There is no pleural effusion. Mediastinum: Unremarkable. Pulmonary vasculature: Unremarkable. Heart: Unremarkable. Bones/extrathoracic soft tissue: Unremarkable. IMPRESSION: There is no radiographic evidence of acute cardiopulmonary process. Dictated by: Dictated on workstation # [id number]
[2021-11-11 10:30] LABS: BASOPHILS % (AUTO) 0 % (0-10); EOSINOPHILS # (AUTO) 0.1 10^3/uL (0.0-0.3); EOSINOPHILS % (AUTO) 1 % (0-10); HEMATOCRIT 44 % (35-52); HEMOGLOBIN 14.7 g/dL (11.5-16.0); LYMPHOCYTES # (AUTO) 1.3 10^3/uL (1.0-4.0); LYMPHOCYTES % (AUTO) 21 % (12-44); MEAN CORPUSCULAR HEMOGLOBIN 29 pg (25-34); MEAN CORPUSCULAR HGB CONC 34 g/dL (32-36); MEAN CORPUSCULAR VOLUME 87 fL (80-99); MEAN PLATELET VOLUME 10.6 fL (9.0-12.2); MONOCYTES # (AUTO) 0.4 10^3/uL (0.0-1.0); MONOCYTES % (AUTO) 7 % (0-12); NEUTROPHILS # (AUTO) 4.2 10^3/uL (1.8-7.8); NEUTROPHILS % (AUTO) 70 % (42-75); PLATELET COUNT 215 10^3/uL (130-400); WHITE BLOOD COUNT 5.9 10^3/uL (4.3-11.0)
[2021-11-11 11:01] LABS: BUN/CREATININE RATIO 18; CARBON DIOXIDE 24 MMOL/L (21-32); CHLORIDE 102 MMOL/L (98-107); GFR ESTIMATED 92; SODIUM 139 MMOL/L (135-145)
[2021-11-11 11:02] LABS: ALANINE AMINOTRANSFERASE 19 U/L (0-55); ALBUMIN 4.8 GM/DL (3.2-4.5); ALKALINE PHOSPHATASE 66 U/L (40-136); BILIRUBIN,TOTAL 0.8 MG/DL (0.1-1.0); CALCIUM 9.6 MG/DL (8.5-10.1); GLUCOSE 124 MG/DL (70-105); MAGNESIUM 1.7 MG/DL (1.6-2.4); TOTAL PROTEIN 7.8 GM/DL (6.4-8.2)
[2021-11-11] MEDS ORDERED: LISI5TAB20 PO (11:54)
[2021-11-11 12:04] VITALS: BP 134/68
[2021-11-11 12:05] LABS: BACTERIA,URINE NEGATIVE /HPF; BILIRUBIN,URINE NEGATIVE (NEGATIVE); CLARITY,URINE CLEAR; COLOR,URINE YELLOW; GLUCOSE, URINE (UA) NEGATIVE (NEGATIVE); KETONES,URINE TRACE (NEGATIVE); LEUKOCYTE ESTERASE ,URINE NEGATIVE (NEGATIVE); NITRITE,URINE NEGATIVE (NEGATIVE); PH,URINE 7.5 (5-9); PROTEIN,URINE NEGATIVE (NEGATIVE); WBC,URINE 0-2 /HPF
[2021-11-11 12:06] LABS: AMPHETAMINE SCREEN, URINE NEGATIVE (NEGATIVE); BARBITURATE SCREEN URINE NEGATIVE (NEGATIVE); BENZODIAZEPINES SCREEN URINE NEGATIVE (NEGATIVE); CANNABINOID SCREEN, URINE POSITIVE (NEGATIVE); COCAINE SCREEN URINE NEGATIVE (NEGATIVE); METHADONE STAT NEGATIVE (NEGATIVE); METHAMPHETAMINE SCREEN URINE S NEGATIVE (NEGATIVE); OPIATE SCREEN URINE NEGATIVE (NEGATIVE); OXYCODONE STAT NEGATIVE (NEGATIVE); PROPOXYPHENE STAT NEGATIVE (NEGATIVE); TRICYCLIC ANTIDEPRESSANTS SCRE NEGATIVE (NEGATIVE)
[2021-11-11 15:53] LABS: TSH (THYROID ANALYZER) 1.09 UIU/ML (0.35-4.94)
== END 2021-11-11 12:04 | disposition home or self-care (01) ==
LOC: EDUNIT# 09:49 → ER FS 09:52
DX: R06.09 Other forms of dyspnea (principal); J45.909 Unspecified asthma, uncomplicated
CPT/HCPCS: 36415; 71046; 80053; 80306; 81000; 83735; 83880; 84443; 84484; 85025; 85379; 86141

== ENCOUNTER → 2022-03-09 | Outpatient (CLI) | payer MEDICAID ==
[~2022-03-09] MED LIST changes: +LISI5TAB20 PO
--- NOTE | 2022-03-09 13:32 | Diagnostic Imaging Report ---
PROCEDURE: MR imaging of the brain without contrast. TECHNIQUE: Multiplanar, multisequence MR imaging of the brain was performed without contrast. INDICATION: Left optic neuritis. Left vision loss. COMPARISON: None. FINDINGS: No abnormal intracranial signal. No restricted water diffusion. No hemosiderin deposition or evidence of intracranial hemorrhage. Normal morphology of the major midline structures, sella, posterior fossa and cerebellar pontine angle. Dedicated sequences to the level of the orbits demonstrate normal morphology with no suspicious mass identified. The optic nerves are symmetric in size and signal allowing for motion. Contrast was not administered. No hydrocephalus or extra-axial fluid collections. Normal intracranial flow voids. Paranasal sinuses and mastoids are unremarkable. Normal bone marrow signal. IMPRESSION: 1. Normal MRI of the brain without contrast. No acute findings. No evidence of acute infarction or hemorrhage. 2. Dedicated sequences to the level of the orbits are normal allowing for motion. No contrast was administered to evaluate for optic nerve enhancement. Dictated by: Dictated on workstation # [id number]
== END ==
LOC: RAD 12:18
PROVIDERS: ATTEND Family Medicine
DX: H46.9 Unspecified optic neuritis (principal)
CPT/HCPCS: 70551

== ENCOUNTER → 2023-09-08 | Outpatient (CLI) | payer SELFPAY ==
[~2023-09-08] MED LIST changes: -OXYB5TAB13 PO; +OXYB5TAB14 PO
== END | disposition home or self-care (01) ==
LOC: PREOP 05:59
PROVIDERS: ATTEND Surgery
DX: Z01.818 Encounter for other preprocedural examination (principal)